=== PATIENT | male | born 1945 | race Caucasian/White ===

== ENCOUNTER 2019-05-24 09:27 | Outpatient (CLI) | payer MEDICARE, OTHER ==
[2019-05-24 10:45] VITALS: BP 137/78
--- NOTE | 2019-05-24 10:45 | SLEEP CARE CONSULTATION ---
Information from patient questionnaire entered by Yasemin Wang. I have reviewed and concur with the information entered by Yasemin Wang. This document represents the service I personally performed and the decisions made by me, Benjamin Corbin MD, [facility]. History of Present Illness Reason for Visit: New patient Chief Complaint: reports: Other (having trouble getting and staying asleep) Duration of Symptoms: months Usual bedtime: 2200 Time it takes to fall asleep: 30-60 minutes Observed to quit breathing while asleep: No Number of times waking at night: 3 Reasons for waking at night: reports: Bathroom Toss, Turn, or Twitch while sleeping: Yes Recalls having dreams: Yes Usually gets out of bed at: [id number] Feels refreshed in the morning: No Morning headache: No Sleepy or fatigued during the day: Yes Ever fallen asleep while driving: No Takes day naps: Yes Dreams during day naps: Yes Prior sleep studies: No Additional HPI information: I had the pleasure of seeing Mr. Martin today regarding the possibility of him having a sleep disorder. As you know, he is a 74 year old gentleman who complains of insomnia for about 30 years, since the [place] War. The patient tells me that he normally goes to bed around 10 pm, and it takes him approximately 30 - 60 minutes to fall asleep. He takes Ambien around 9 pm, but not every night. He does not know if he snores. He has never been observed to stop breathing in his sleep. His has to sleep in a separate room. He can recall waking up on the average of 3 times during the night. Most of the time he wakes up because of having to use the bathroom and pain. He has awakened occasionally because of his own snoring, choking, and having to gasp for air. There is a lot of tossing and turning in his sleep. No somniloquy (sleep talking) or somnambulism (sleep walking). Generally he can recall having dreams. In the morning he usually gets up out of the bed around 7 - 8 a.m. not feeling refreshed nor rested. He usually does not have a morning headache. During the day he complains of feeling sleepy and fatigued. His score on [place] Sleepiness Scale is 15 out of 24. He has never fallen asleep while driving nor has had any accident due to sleepiness. He usually takes naps during the day. Upon falling asleep during the day he reports having dreams. He reports symptoms of restless leg syndrome. He reports having impaired concentration during the day. Subjective Initial [place] Sleepiness Scale score: 15 Past Medical History Past Medical History: reports: Claustrophobia, Arthritis, Asthma, GERD Social History The patient's occupation is retired. Patient is and lives in [place]. Have you smoked in the past 12 months: Yes Cigarettes per day (20/pack): 20 Years of smokin Smoking Pack Years: 50.0 Caffeine use: Yes Family History Family history of sleep disordered breathing: No Allergies and Home Medications Drug allergies reviewed: Yes Home medication list reviewed: Yes Allergy and home medication list: Meds: The patient did not bring his meds list. Review of Systems Weight loss over past 5 years: 177 Cardiovascular: reports: high blood pressure Respiratory: reports: shortness of breath, chronic cough Gastrointestinal: denies: heartburn, difficulty swallowing, nausea, vomitting, diarrhea, abdominal pain, other Urinary: reports: frequency, urgency Neurological: reports: head trauma Psychiatric: reports: depression Ear/Nose/Throat: reports: wisdom teeth removed Endocrine: reports: thyroid disease, increased urination Musculoskeletal: reports: joint pain, neck pain, back pain Immunologic: denies: sneezing, rash, itching, allergies to food or environment, other Physical Exam Vital signs obtained and entered by: Dr. Corbin Blood Pressure: 137/78 Heart Rate: 102 O2 Saturation: 94 Height: 5 ft 11 in Weight: 187 lb Body Mass Index: 26.0 BMI Classification: Overweight Neck circumference: 16.5 Mood/affect: normal HEENT: No craniofacial malformation Nostrils: patent to airflow Turbinates: normal Septum: deviated right Mouth and throat: narrow oropharynx Soft palate: long Hard palate: normal Uvula: normal Uvula visualization: 50% Mallampati Class II Tongue: normal in size Tonsils: small Chin and jaw: normal size and position Neck: normal w/o lymphadenopathy or thyromegaly Heart: regular rate and rhythm Lungs: wheeze Abdomen: soft, non-tender Extremities: no edema or clubbing Neurologic: intact, no focal deficits Impression and Plan IMPRESSION: 1. Insomnia, due to excessive time spent in bed of about 12 hours (10 hours at night and 2 hours nap during the day). He possibly has underlying post- traumatic stress disorder. The patient also smokes cigarettes into the evening. Other sleep disrupting conditions should be ruled out, e.g. sleep-disordered breathing. Narrow oropharynx and obesity are common predisposing factors for obstructive sleep apnea-hypopnea syndrome. I recommend proceeding to an in- laboratory polysomnography. In the meantime, he should delay his bedtime for 2 hours and not go to bed until midnight. If he takes naps during the day, he should go to bed even later accordingly. He wake up time may stay at 8 am. Plan: 1. Schedule polysomnography and return in 1 to 2 weeks after the study to discuss results. 2. Maintain a regular wake up time and spend no more than 8 hours in bed at night. Avoid naps. 3. Quit smoking at least in the evening because nicotine is an alerting substance. I spent 100% of this 20 minute visit face to face with the patient with greater than 50% of this was spent time counseling the patient and coordination of care.
== END 2019-05-24 09:28 | disposition home or self-care (01) ==
LOC: SC 09:27
PROVIDERS: ATTEND Internal Medicine Pulmonary Disease
DX: G47.00 Insomnia, unspecified (principal); F17.210 Nicotine dependence, cigarettes, uncomplicated; R53.83 Other fatigue
CPT/HCPCS: 99203; G0463; 99212

== ENCOUNTER 2019-05-28 20:45 | Outpatient (CLI) | payer MEDICARE, OTHER | END 2019-05-28 20:46 | disposition home or self-care (01) | LOC: SC 20:45 | PROVIDERS: ATTEND Internal Medicine Pulmonary Disease | DX: G47.61 Periodic limb movement disorder (principal) | CPT/HCPCS: 95810 ==

== ENCOUNTER 2019-06-07 08:53 | Outpatient (CLI) | payer MEDICARE, OTHER ==
--- NOTE | 2019-06-07 10:15 | SLEEP CARE CONSULTATION ---
Information from patient questionnaire entered by Jeanne Feliciano. I have reviewed and concur with the information entered by Jeanne Feliciano. This document represents the service I personally performed and the decisions made by me, Benjamin Corbin MD, [facility]. History of Present Illness Initial [place] Sleepiness Scale score: 15 Current [place] Sleepiness Scale score: 20 Additional HPI information: HPI: Mr. Martin returned with his for follow up of the sleep study he had on 05/28/2019. The polysomnography showed that the patient had slightly reduced sleep efficiency due to frequent awakenings after the sleep onset. The sleep architecture was abnormal for sleep fragmentation and reduced amount of time spent in slow wave sleep (N3). Respiratory monitoring showed no significant sleep disordered breathing (AHI = 1.3). There is mild hypoxia due to low-normal baseline oxygen saturation of 91% (karen oxygen saturation of 87%). The respiratory events occurred independently of sleep stage and body position (supine AHI = 1.7; non-supine = 1.18). Snore was moderate in intensity. There was severe periodic leg movement of sleep contributing to the sleep fragmentation. Cardiac rhythm was normal sinus rhythm with rare premature ventricular contractions. No abnormal behavior (parasomnia) observed during the night. The patient was informed of these findings. I explained to him that periodic leg movement of sleep is the only possible sleep disrupting condition found. The patient main complaint remains insomnia. He reports occasional restless leg sensation in the evening. Allergies and Home Medications Drug allergies reviewed: Yes Home medication list reviewed: Yes Review of Systems Review of systems same as previous: Yes Physical Exam Weight: 187 lb Impression and Plan IMPRESSION: 1. Insomnia, due to excessive time spent in bed10 hours (going to bed at 10 pm and getting out of bed at 8 am). Periodic leg movement of sleep is possibly a contributing factor. 2. Periodic leg movement of sleep/restless leg syndrome. The patient is already taking gabapentin, according to him. The cause of periodic leg movement of sleep is typically unknown. Few known causes are iron deficiency, renal failure, and selective serotonin reuptake inhibitors. Iron and ferritin levels are recommended in addition to the routine blood work. More effective medications include dopamine agonists, such as pramipexole and ropinirole. The patient would like to discuss further treatment with his primary care provider. PLAN: 1. Maintain a regular wake up time and spend no more than 8 hours in bed at night. Avoid naps. 2. Follow up with primary care provider regarding restless leg syndrome/periodic leg movement of sleep. 3. Return to the sleep center on as needed basis. I spent 100% of this 20 minute visit face to face with the patient with greater than 50% of this was spent time counseling the patient and coordination of care.
== END 2019-06-07 08:54 | disposition home or self-care (01) ==
LOC: SC 08:53
PROVIDERS: ATTEND Internal Medicine Pulmonary Disease
DX: G47.00 Insomnia, unspecified (principal); G47.61 Periodic limb movement disorder
CPT/HCPCS: 99213; G0463; 99212